=== PATIENT | male | born 1980 | race Hispanic/Latino ===

== ENCOUNTER 2024-05-28 15:55 | Emergency (ER) | payer SELFPAY ==
[2024-05-28] MEDS ORDERED: Ibuprofen 600 MG TAB ONE (16:39)
[2024-05-28] MEDS ORDERED: Penicillin V Potassium 250 MG TAB ONE (16:39)
== END 2024-05-28 16:56 | disposition home or self-care (01) ==
LOC: MADERS 15:55
DX: K04.7 Periapical abscess without sinus (principal); Z72.89 Other problems related to lifestyle
CPT/HCPCS: 99282